=== PATIENT | male | born 1945 | race Caucasian/White ===

== ENCOUNTER 2016-10-20 22:45 | Emergency (ER) | payer MEDICARE, OTHER ==
[~2016-10-20] VITALS: Ht 190.5 cm; Wt 95.0 kg
--- NOTE | 2016-10-20 23:37 | PD ---
HPI Chief Complaint: calderon act and fall Time Seen by Provider: 23:02 Travel History International Travel<30 days: No Contact w/Intl Traveler<30days: No History of Present Illness HPI Patient is a 71-year-old male who presents to emergency room with EMS with multiple complaints. As per patient, patient went outside to urinate, that he fell onto cement and landed onto his face. Patient denies loss of consciousness. He does take a full dose aspirin every single. Patient with no complaints at this time. Patient denies any headache or dizziness. EMS reports that patient made suicidal comments to his family members prior to their arrival. Patient was placed under Calderon act prior to arrival to emergency room. Patient at this time denies suicidal or homicidal ideations. FORMERLY [facility], [facility] Social History Alcohol Use: Yes Tobacco Use: Yes Allergies-Medications (Allergen,Severity, Reaction): Coded Allergies: No Known Allergies (Unverified , 10/20/16) Reported Meds & Prescriptions Reported Meds & Active Scripts Active Reported Lopressor (Metoprolol Tartrate) 50 Mg Tab 25 Mg PO DAILY Lisinopril 20 Mg Tab 20 Mg PO DAILY Review of Systems General / Constitutional: No: Fever Eyes: No: Visual changes HENT: No: Headaches Cardiovascular: No: Chest Pain or Discomfort Respiratory: No: Shortness of Breath Gastrointestinal: No: Abdominal Pain Genitourinary: No: Dysuria Musculoskeletal: No: Pain Skin: No Rash Neurologic: No: Weakness Psychiatric: Positive: Depression, Suicidal Ideations Endocrine: No: Polydipsia Hematologic/Lymphatic: No: Easy Bruising Physical Exam Narrative GENERAL: No acute distress SKIN: Focused skin assessment warm/dry. HEAD: Atraumatic. Normocephalic. EYES: Pupils equal and round. No scleral icterus. No injection or drainage. ENT: Dried blood in nares. Mucous membranes pink and moist. NECK: Trachea midline. No JVD. Patient placed in c-spine precautions CARDIOVASCULAR: Regular rate and rhythm. No murmur appreciated. RESPIRATORY: No accessory muscle use. Clear to auscultation. Breath sounds equal bilaterally. GASTROINTESTINAL: Abdomen soft, non-tender, nondistended. Hepatic and splenic margins not palpable. MUSCULOSKELETAL: No obvious deformities. No clubbing. No cyanosis. No edema. Patient with no midline thoracic or lumbar tenderness. NEUROLOGICAL: Awake and alert. No obvious cranial nerve deficits. Motor grossly within normal limits. Normal speech. PSYCHIATRIC: Appropriate mood and affect; insight and judgment normal. Data Data Last Documented VS Vital Signs Date Time Temp Pulse Resp B/P Pulse Ox O2 Delivery O2 Flow Rate FiO2 10/20/16 23:39 98.2 73 16 143/[address] Brain W/O Iv Contrast(Rout) (10/20/16 23:14) Ct Cerv Spine W/O Contrast (10/20/16 23:14) Ct Facial Bones W/O Iv Cont (10/20/16 23:14) Complete Blood Count With Diff (10/20/16 23:14) Iv Access Insert/Monitor (10/20/16 23:14) Ecg Monitoring (10/20/16 23:14) Psych Screen (10/20/16 23:14) Drug Screen, Random Urine (10/20/16 23:14) Prothrombin Time / Inr (Pt) (10/20/16 23:14) Act Partial Throm Time (Ptt) (10/20/16 23:14) Chest, Single Ap (10/20/16 23:14) Alcohol (Ethanol) (10/20/16 23:16) Comprehensive Metabolic Panel (10/20/16 23:35) Labs Laboratory Tests Test 10/20/16 23:35 White Blood Count 3.7 TH/MM3 Red Blood Count 4.03 MIL/MM3 Hemoglobin 13.2 GM/DL Hematocrit 40.4 % Mean Corpuscular Volume 100.2 FL Mean Corpuscular Hemoglobin 32.8 PG Mean Corpuscular Hemoglobin 32.7 % Concent Red Cell Distribution Width 16.7 % Platelet Count 113 TH/MM3 Mean Platelet Volume 8.4 FL Neutrophils (%) (Auto) 47.1 % Lymphocytes (%) (Auto) 36.6 % Monocytes (%) (Auto) 10.7 % Eosinophils (%) (Auto) 4.7 % Basophils (%) (Auto) 0.9 % Neutrophils # (Auto) 1.7 TH/MM3 Lymphocytes # (Auto) 1.3 TH/MM3 Monocytes # (Auto) 0.4 TH/MM3 Eosinophils # (Auto) 0.2 TH/MM3 Basophils # (Auto) 0.0 TH/MM3 CBC Comment DIFF FINAL Differential Comment Prothrombin Time 9.7 SEC Prothromb Time International 0.9 RATIO Ratio Activated Partial 25.2 SEC Thromboplast Time Sodium Level 142 MEQ/L Potassium Level 3.8 MEQ/L Chloride Level 103 MEQ/L Carbon Dioxide Level 30.5 MEQ/L Anion Gap 9 MEQ/L Blood Urea Nitrogen 18 MG/DL Creatinine 1.20 MG/DL Estimat Glomerular Filtration 60 ML/MIN Rate Random Glucose 123 MG/DL Calcium Level 8.7 MG/DL Total Bilirubin 0.4 MG/DL Aspartate Amino Transf 87 U/L (AST/SGOT) Alanine Aminotransferase 60 U/L (ALT/SGPT) Alkaline Phosphatase 69 U/L Total Protein 8.0 GM/DL Albumin 4.1 GM/DL Urine Opiates Screen NEG Urine Barbiturates Screen NEG Urine Amphetamines Screen NEG Urine Benzodiazepines Screen POS Urine Cocaine Screen NEG Urine Cannabinoids Screen NEG Ethyl Alcohol Level 262 MG/DL MDM Medical Decision Making Medical Screen Exam Complete: Yes Emergency Medical Condition: Yes Differential Diagnosis Differential includes facial fractures, intracranial hemorrhage, suicidal evaluations, depression Narrative Course Patient is a 71-year-old male who presents to emergency room with multiple complaints. he reports that he went to the bathroom today and the bathroom was occupied so he decided to pee outside. Patient ended up tripping and falling onto his face on his driveway. He then made suicidal comments to his family members. Patient does arrive emergency room on a backboard and collared. Ct of head/ facial bones and neck ordered. Tox screens ordered as patient will require psychiatric evaluation as he comes under a calderon act Laboratory Tests Test 10/20/16 23:35 White Blood Count 3.7 TH/MM3 (4.0-11.0) Red Blood Count 4.03 MIL/MM3 (4.50-5.90) Hemoglobin 13.2 GM/DL (13.0-17.0) Hematocrit 40.4 % (39.0-51.0) Mean Corpuscular Volume 100.2 FL (80.0-100.0) Mean Corpuscular Hemoglobin 32.8 PG (27.0-34.0) Mean Corpuscular Hemoglobin 32.7 % Concent (32.0-36.0) Red Cell Distribution Width 16.7 % (11.6-17.2) Platelet Count 113 TH/MM3 (150-450) Mean Platelet Volume 8.4 FL (7.0-11.0) Neutrophils (%) (Auto) 47.1 % (16.0-70.0) Lymphocytes (%) (Auto) 36.6 % (9.0-44.0) Monocytes (%) (Auto) 10.7 % (0.0-8.0) Eosinophils (%) (Auto) 4.7 % (0.0-4.0) Basophils (%) (Auto) 0.9 % (0.0-2.0) Neutrophils # (Auto) 1.7 TH/MM3 (1.8-7.7) Lymphocytes # (Auto) 1.3 TH/MM3 (1.0-4.8) Monocytes # (Auto) 0.4 TH/MM3 (0-0.9) Eosinophils # (Auto) 0.2 TH/MM3 (0-0.4) Basophils # (Auto) 0.0 TH/MM3 (0-0.2) CBC Comment DIFF FINAL Differential Comment Prothrombin Time 9.7 SEC (9.8-11.6) Prothromb Time International 0.9 RATIO Ratio Activated Partial 25.2 SEC Thromboplast Time (24.3-30.1) Sodium Level 142 MEQ/L (136-145) Potassium Level 3.8 MEQ/L (3.5-5.1) Chloride Level 103 MEQ/L (98-107) Carbon Dioxide Level 30.5 MEQ/L (21.0-32.0) Anion Gap 9 MEQ/L (5-15) Blood Urea Nitrogen 18 MG/DL (7-18) Creatinine 1.20 MG/DL (0.60-1.30) Estimat Glomerular Filtration 60 ML/MIN (>89) Rate Random Glucose 123 MG/DL (74-106) Calcium Level 8.7 MG/DL (8.5-10.1) Total Bilirubin 0.4 MG/DL (0.2-1.0) Aspartate Amino Transf 87 U/L (15-37) (AST/SGOT) Alanine Aminotransferase 60 U/L (12-78) (ALT/SGPT) Alkaline Phosphatase 69 U/L (45-117) Total Protein 8.0 GM/DL (6.4-8.2) Albumin 4.1 GM/DL (3.4-5.0) Urine Opiates Screen NEG (NEG) Urine Barbiturates Screen NEG (NEG) Urine Amphetamines Screen NEG (NEG) Urine Benzodiazepines Screen POS (NEG) Urine Cocaine Screen NEG (NEG) Urine Cannabinoids Screen NEG (NEG) Ethyl Alcohol Level 262 MG/DL (0-5) Last Impressions Head CT 10/20/162313 Draft Impressions: Service Date/Time: Friday, October 21, 2016 00:35 - CONCLUSION: 1. No evidence of acute intracranial pathology. Chronic ischemic changes as above. Tawanda Cam MD Chest X-Ray 10/20/162313 Signed Impressions: Service Date/Time: October 23:36 - CONCLUSION: 1. No acute cardiopulmonary disease. MD Lew Silva Jennifer L DO Oct 20, 2016 23:37
[2016-10-20 23:39] VITALS: BP 143/80; PULSE 73; RESP 16; TEMP 98.2; O2SAT 97
[2016-10-20] MEDS ORDERED: LISI-515 PO (23:39)
[2016-10-20] MEDS ORDERED: METO-309 PO (23:39)
--- NOTE | 2016-10-20 23:56 | RADRPT ---
EXAM DATE/TIME: 10/20/2016 23:36 [facility] COMPARISON: No previous studies available for comparison. INDICATIONS : Chest pain this evening. MEDICAL HISTORY : Hypertension. SURGICAL HISTORY : None. ENCOUNTER: Initial ACUITY: 1 day PAIN SCORE: 7/10 LOCATION: Bilateral chest FINDINGS: A single view of the chest demonstrates the lungs to be symmetrically aerated without evidence of mas s, infiltrate or effusion. The cardiomediastinal contours are unremarkable. Osseous structures are intact. CONCLUSION: 1. No acute cardiopulmonary disease. Tawanda Cam MD on October 20, 2016 at 23:54 Board Certified Radiologist. This report was verified electronically.
[2016-10-20 23:57] LABS: AUTOMATED NEUTROPHIL # 1.7 TH/MM3 (1.8-7.7); BASOPHIL % 0.9 % (0.0-2.0); EOSINOPHIL # 0.2 TH/MM3 (0-0.4); EOSINOPHIL % 4.7 % (0.0-4.0); HEMATOCRIT 40.4 % (39.0-51.0); HEMO FLAGS DIFF FINAL; LYMPH % 36.6 % (9.0-44.0); LYMPHOCYTE # 1.3 TH/MM3 (1.0-4.8); MEAN CELL VOLUME 100.2 FL (80.0-100.0); MEAN CORPUSCULAR HEMOGLOBIN 32.8 PG (27.0-34.0); MEAN CORPUSCULAR HGB CONC 32.7 % (32.0-36.0); MONO % 10.7 % (0.0-8.0); NEUT % 47.1 % (16.0-70.0); PLATELET COUNT 113 TH/MM3 (150-450); RED BLOOD COUNT 4.03 MIL/MM3 (4.50-5.90); RED CELL DISTRIBUTION WIDTH 16.7 % (11.6-17.2); WHITE BLOOD COUNT 3.7 TH/MM3 (4.0-11.0)
[2016-10-21 00:05] LABS: AMPHETAMINE, URINE NEG (NEG); BARBITURATES, URINE NEG (NEG); COCAINE, URINE NEG (NEG)
[2016-10-21 00:11] LABS: APTT (PATIENT) 25.2 SEC (24.3-30.1); INTERNATIONAL NORMALIZED RATIO 0.9 RATIO; PROTHROMBIN TIME - PATIENT 9.7 SEC (9.8-11.6)
[2016-10-21 00:22] LABS: ALT (GPT) 60 U/L (12-78); ANION GAP 9 MEQ/L (5-15); AST (GOT) 87 U/L (15-37); BICARBONATE 30.5 MEQ/L (21.0-32.0); BLOOD UREA NITROGEN 18 MG/DL (7-18); CHLORIDE 103 MEQ/L (98-107); GLOMERULAR FILTRATION RATE 60 ML/MIN (>89); POTASSIUM 3.8 MEQ/L (3.5-5.1); SODIUM (NA) 142 MEQ/L (136-145)
[2016-10-21 00:24] LABS: ALKALINE PHOSPHATASE 69 U/L (45-117); TOTAL BILIRUBIN ADULT 0.4 MG/DL (0.2-1.0)
--- NOTE | 2016-10-21 01:00 | RADRPT ---
EXAM DATE/TIME: 10/21/2016 00:35 [facility] COMPARISON: No previous studies available for comparison. INDICATIONS : Trauma, fall. RADIATION DOSE: 56.35 CTDIvol (mGy) MEDICAL HISTORY : Hypertension. SURGICAL HISTORY : None. ENCOUNTER: Initial ACUITY: 1 day PAIN SCALE: 0/10 LOCATION: cranial TECHNIQUE: Multiple contiguous axial images were obtained of the head. Using automated exposure control and adj ustment of the mA and/or kV according to patient size, radiation dose was kept as low as reasonably a chievable to obtain optimal diagnostic quality images. DICOM format image data is available electro nically for review and comparison. FINDINGS: Noncontrast axial head CT demonstrates the ventricles to be normal in size and configuration with a n ormal sulcal pattern. No acute intracranial hemorrhage, acute cortical infarction, mass or midline sh ift is seen. There is periventricular hypodensity compatible with chronic ischemic change slightly mo re than expected for patient this age. Posterior fossa structures are unremarkable. Bone windows are unremarkable. CONCLUSION: 1. No evidence of acute intracranial pathology. Chronic ischemic changes as above. Tawanda Cam MD on October 21, 2016 at 0:57 Board Certified Radiologist. This report was verified electronically.
--- NOTE | 2016-10-21 01:04 | RADRPT ---
EXAM DATE/TIME: 10/21/2016 00:36 [facility] COMPARISON: No previous studies available for comparison. INDICATIONS : Trauma, fall. RADIATION DOSE: 28.42 CTDIvol (mGy) MEDICAL HISTORY : Hypertension. SURGICAL HISTORY : None. ENCOUNTER: Initial ACUITY: 1 day PAIN SCALE: 0/10 LOCATION: neck TECHNIQUE: Volumetric scanning of the cervical spine was performed. Multiplanar reconstructions in the sagittal, coronal and oblique axial planes were performed. Using automated exposure control and adjustment o f the mA and/or kV according to patient size, radiation dose was kept as low as reasonably achievable to obtain optimal diagnostic quality images. DICOM format image data is available electronically f or review and comparison. FINDINGS: Sagittal images demonstrate normal vertebral body alignment and curvature. The odontoid is intact. Th e occipital condyles and lateral masses of C1 are intact. Axial images were performed from C2-C3 to C7-T1. There is multilevel disc space narrowing and marginal osteophyte formation maximal at C5-C6. C2-C3: There is no evidence of disc protrusion or spinal canal stenosis. There is mild facet arthritis bilat erally. C3-C4: There is osteophytic ridging along the posterior aspect of vertebral body. There is mild facet arthri tis bilaterally. There is no significant spinal canal stenosis. There is moderate neural foraminal na rrowing on the left. There is mild right sided neural foraminal narrowing. C4-C5: There is no evidence of disc protrusion or spinal canal stenosis. There is mild facet arthritis on th e right. There is uncovertebral joint hypertrophy on the right side. There is moderate neural foramin al narrowing on the right. C5-C6: There is mild annular bulge of the disc. There is uncovertebral joint hypertrophy bilaterally. There is moderate neural foraminal narrowing bilaterally. There is no significant spinal canal stenosis. C6-C7: No significant abnormalities identified. C7-T1: No significant abnormalities identified. CONCLUSION: 1. Moderate degenerative changes as described above. There is no evidence of acute fracture. Tawanda Cam MD on October 21, 2016 at 0:58 Board Certified Radiologist. This report was verified electronically.
--- NOTE | 2016-10-21 01:05 | RADRPT ---
EXAM DATE/TIME: 10/21/2016 00:37 [facility] COMPARISON: No previous studies available for comparison. INDICATIONS : Trauma, fall. RADIATION DOSE: 26.35 CTDIvol (mGy) MEDICAL HISTORY : Hypertension. SURGICAL HISTORY : None. ENCOUNTER: Initial ACUITY: 1 day PAIN SCORE: 0/10 LOCATION: facial TECHNIQUE: Volumetric scanning of the facial bones was performed. Using automated exposure control and adjustme nt of the mA and/or kV according to patient size, radiation dose was kept as low as reasonably achiev able to obtain optimal diagnostic quality images. DICOM format image data is available electronicall y for review and comparison. FINDINGS: ORBITS: The orbital and infraorbital osseous structures are intact. The retroconal structures have a normal configuration. No radiopaque foreign bodies are seen. NASAL BONE: The nasal bone and maxillary spine are intact ZYGOMATIC ARCHES: Symmetric without evidence of fracture. SINUSES: The maxillary, ethmoid and frontal sinuses are intact. No air-fluid levels seen. NASAL CAVITY: The nasal septum is intact and midline. The lacrimal ducts are intact. SOFT TISSUES: No radiopaque foreign bodies seen. No soft-tissue swelling is seen. INTRACRANIAL: No intracranial air seen. CRIBIFORM PLATE: Grossly intact. CONCLUSION: 1. There is no evidence of acute fracture. Tawanda Cam MD on October 21, 2016 at 1:03 Board Certified Radiologist. This report was verified electronically.
[2016-10-21 06:02] VITALS: BP 129/67; PULSE 88; PULSE 91; RESP 18; O2SAT 96
== END 2016-10-21 10:04 | disposition home or self-care (01) ==
LOC: NEPC 22:45
DX: R45.851 Suicidal ideations (principal); S09.90XA Unspecified injury of head, initial encounter; W01.0XXA Fall on same level from slipping, tripping and stumbling without subsequent striking against object, initial encounter; Y92.008 Other place in unspecified non-institutional (private) residence as the place of occurrence of the external cause; I10 Essential (primary) hypertension; Z72.0 Tobacco use; Z79.899 Other long term (current) drug therapy
CPT/HCPCS: 70450; 70486; 71010; 72125; 80053; 80307; 85025; 85610; 85730